=== PATIENT | male | born 1985 | race Caucasian/White ===

== ENCOUNTER 2017-02-20 15:57 | Emergency (ER) | payer BC, OTHER ==
[~2017-02-20] VITALS: Ht 190.5 cm; Wt 70.0 kg
[2017-02-20 16:01] VITALS: Ht 190.5 cm; Wt 70.0 kg
[2017-02-20] MEDS ORDERED: DIPHTH/TET/ACEL PERTUSS (ADULT) 0.5 ML VIAL IM* ONE (16:30)
[2017-02-20] MEDS ORDERED: HYDROCODONE/APAP (5/325) TAB PO ONE (16:30)
--- NOTE | 2017-02-20 18:24 | RADRPT ---
PROCEDURE: XR Foot. CLINICAL INDICATION: right foot injury TECHNIQUE: AP, lateral and oblique views of the right foot was obtained. The images were reviewed on a PACS workstation. COMPARISON: None. FINDINGS: The bones of the foot appear intact, with no evidence of acute fracture, dislocation, or subluxation . The joint spaces are preserved. Bone mineralization is normal. No significant soft tissue swelling is seen. IMPRESSION: Unremarkable right foot radiographs. RPTAT: EE Physician Brianna Date Time Electronically viewed and signed by Physician Brianna on 02/20/2017 18:24 RA/
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
--- NOTE | 2017-02-20 18:25 | RADRPT ---
PROCEDURE: XR Ankle. CLINICAL INDICATION: Pain TECHNIQUE: AP, oblique and lateral views of the right ankle were performed. COMPARISON: None. FINDINGS: There is normal mineralization and alignment. No acute fracture or osseous lesion is identified. The joints are normal. The soft tissues are unremarkable. IMPRESSION: Unremarkable right ankle. RPTAT: EE Physician Brianna Date Time Electronically viewed and signed by Jose Pizarro Physician on 02/20/2017 18:25 RA/
--- NOTE | 2017-02-20 18:25 | RADRPT ---
PROCEDURE: Right knee x-ray CLINICAL INDICATION: right knee injury TECHNIQUE: AP, lateral, and oblique views of the knee were obtained. COMPARISON: None FINDINGS: No acute fracture or dislocation is seen. There is normal mineralization. There are no significant degenerative changes. There is no joint effusion. There is no significant soft tissue swelling. IMPRESSION: Unremarkable plain radiographs of the right knee. RPTAT: EE Physician Brianna Date Time Electronically viewed and signed by Jose Pizarro Physician on 02/20/2017 18:25 /
[2017-02-20] MEDS ORDERED: IBUP-1542 PO (18:44)
[2017-02-20] MEDS ORDERED: CEPH-443 PO (18:44)
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
[2017-02-20 19:17] VITALS: BP 118/67; PULSE 72; RESP 20; TEMP 98.3
[2017-02-21] MEDS ORDERED: HYDR-906 PO (20:10)
== END 2017-02-20 19:20 | disposition home or self-care (01) ==
LOC: FTE 15:57
DX: S80.211A Abrasion, right knee, initial encounter (principal); V23.4XXA Motorcycle driver injured in collision with car, pick-up truck or van in traffic accident, initial encounter; Z23 Encounter for immunization
CPT/HCPCS: 73562; 73590; 73610; 73630; 90471; 90715; Z7502; Z7610

== ENCOUNTER 2017-02-21 19:46 | Emergency (ER) | payer BC ==
[~2017-02-21] VITALS: Ht 190.5 cm; Wt 70.5 kg
[~2017-02-21 19:46] MED LIST: CEPH-443 PO; IBUP-1542 PO
[2017-02-21 19:49] VITALS: Ht 190.5 cm; Wt 70.5 kg
[2017-02-21] MEDS ORDERED: HYDR-906 PO (20:10)
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
[2017-02-21] MEDS ORDERED: HYDROCODONE/APAP (10/325) TAB PO ONE (20:30)
== END 2017-02-21 20:43 | disposition home or self-care (01) ==
LOC: FTE 19:46
DX: S90.01XA Contusion of right ankle, initial encounter (principal); V89.9XXA Person injured in unspecified vehicle accident, initial encounter
CPT/HCPCS: Z7502; Z7610; 99283